=== PATIENT | female | born 2000 | race Caucasian/White ===

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

== ENCOUNTER 2021-04-01 11:29 | Outpatient (CLI) | payer MEDICAID ==
[2021-04-01 18:38] LABS: HCT - HEMATOCRIT 45.2 % (37.0-47.0); HGB - HEMOGLOBIN 15.2 g/dL (12.0-16.0); MEAN CORPUSCULAR HEMOGLOBIN 31.7 pg (27.0-31.0); MEAN CORPUSCULAR HGB CONC 33.6 g/dL (32.0-36.0); MEAN CORPUSCULAR VOLUME 94.2 fL (81.0-99.0); MEAN PLATELET VOLUME 9.9 fL (7.9-10.8); RED BLOOD COUNT 4.8 10^6/uL (4.20-5.40); RED CELL DISTRIBUTION WIDTH 12.2 % (12.0-15.0)
[2021-04-01 19:20] LABS: ALBUMIN 4.5 g/dL (3.2-5.5); ALBUMIN/GLOBULIN RATIO 1.6 (1.0-2.2); BILIRUBIN,TOTAL 0.6 mg/dL (0.2-1.0); CALCIUM 9.7 mg/dL (8.5-10.3); POTASSIUM 4.1 mmol/L (3.5-5.0); TOTAL PROTEIN 7.4 g/dL (6.7-8.2)
== END 2021-04-01 11:30 | disposition home or self-care (01) ==
LOC: LAB.N 11:29
PROVIDERS: ATTEND Obstetrics & Gynecology
DX: R53.83 Other fatigue (principal); N92.0 Excessive and frequent menstruation with regular cycle
CPT/HCPCS: 36415; 80053; 84443; 85025; 85027

== ENCOUNTER 2021-04-11 08:00 | Outpatient (CLI) | payer MEDICAID ==
[2021-04-11 20:23] LABS: CHLAMYDIA TRACHOMATIS DNA NEGATIVE (NEGATIVE); NEISSERIA GONORRHOEAE DNA NEGATIVE (NEGATIVE); TRICHOMONAS VAGINALIS DNA NEGATIVE (NEGATIVE)
[2021-04-11 21:36] LABS: BACTERIAL VAGINOSIS DNA NEGATIVE (NEGATIVE); CANDIDA GLABRATA DNA NEGATIVE (NEGATIVE); CANDIDA GROUP DNA POSITIVE (NEGATIVE); CANDIDA KRUSEI DNA NEGATIVE (NEGATIVE); TRICHOMONAS VAGINALIS DNA NEGATIVE (NEGATIVE)
== END 2021-04-11 23:59 ==
LOC: LAB 08:00
PROVIDERS: ATTEND Obstetrics & Gynecology
DX: N76.0 Acute vaginitis (principal)
CPT/HCPCS: 87491; 87591; 87661; 87801

== ENCOUNTER 2021-06-28 08:00 | Outpatient (CLI) | payer MEDICAID ==
[2021-06-28 21:19] LABS: CHLAMYDIA TRACHOMATIS DNA NEGATIVE (NEGATIVE); NEISSERIA GONORRHOEAE DNA NEGATIVE (NEGATIVE); TRICHOMONAS VAGINALIS DNA NEGATIVE (NEGATIVE)
== END 2021-06-28 23:59 | disposition home or self-care (01) ==
LOC: LAB 08:00
PROVIDERS: ATTEND Obstetrics & Gynecology
DX: Z11.3 Encounter for screening for infections with a predominantly sexual mode of transmission (principal)
CPT/HCPCS: 87491; 87591; 87661

== ENCOUNTER 2023-05-04 08:00 | Outpatient (CLI) | payer BC, MEDICAID ==
[2023-05-04 23:01] LABS: NEISSERIA GONORRHOEAE DNA NEGATIVE (NEGATIVE); TRICHOMONAS VAGINALIS DNA NEGATIVE (NEGATIVE)
[2023-05-04 23:06] LABS: CHLAMYDIA TRACHOMATIS DNA POSITIVE (NEGATIVE)
== END 2023-05-04 23:59 | disposition home or self-care (01) ==
LOC: LAB.WC 08:00
PROVIDERS: ATTEND Nurse Practitioner
DX: Z11.3 Encounter for screening for infections with a predominantly sexual mode of transmission (principal)
CPT/HCPCS: 87491; 87591; 87661

== ENCOUNTER 2023-06-03 17:01 | Outpatient (CLI) | payer BC ==
--- NOTE | 2023-06-03 21:35 | Ultrasound Report ---
PROCEDURE: Pelvic w/Transvaginal INDICATIONS: PELVIC PAIN TECHNIQUE: Real-time scanning was performed of the pelvic organs, with image documentation. Additional endovagi nal scanning was necessary due to incomplete visualization of the adnexal and endometrial structures by transabdominal scanning. COMPARISON: None. FINDINGS: Uterus: Uterus is anteverted and normal in size at 10.3 x 2.6 x 5.4 cm. The myometrium is homogeneo us. The endometrium measures 3.1 mm in combined thickness. IUD is in appropriate position. Cervix a nd vagina are within normal limits. Ovaries: The right ovary measures 3.8 x 2.4 x 3.7 cm, with a calculated ovarian volume of 17.3 cc. The left ovary measures 4] 2.1 x 3.6 cm, with a calculated ovarian volume of 15.4 cc. The ovaries bolden ve a normal sonographic appearance. Greater than 12 follicles can be seen in each ovary. No adnexal masses are seen. No cystic lesions measuring greater than 3 cm. Other: No pathologic free abdominal or pelvic fluid. IMPRESSION: 1.Greater than 12 follicles can be seen in each ovary, which can be seen in the clinical setting of P COS. 2.IUD is in appropriate position. Reviewed by: Benji Guidry MD on 06/03/2023 9:34 PM PDT Approved by: Benji Guidry MD on 06/03/2023 9:34 PM PDT Station ID: [id number]
== END 2023-06-03 17:02 | disposition home or self-care (01) ==
LOC: DI 17:01
PROVIDERS: ATTEND Nurse Practitioner
DX: E28.2 Polycystic ovarian syndrome (principal); R10.2 Pelvic and perineal pain; Z97.5 Presence of (intrauterine) contraceptive device
CPT/HCPCS: 36415; 82166; 82627; 82670; 83001; 83002; 83036; 83498; 84144; 84146; 84270; 84402; 84403; 84443

== ENCOUNTER 2023-06-26 22:28 | Emergency (ER) | payer BC ==
[2023-06-26 23:01] LABS: BASOPHILS % (AUTO) 0.4 %; EOSINOPHILS # (AUTO) 0.1 10^3/uL (0.0-0.7); EOSINOPHILS % (AUTO) 1.4 %; HCT - HEMATOCRIT 42.9 % (37.0-47.0); HGB - HEMOGLOBIN 14.3 g/dL (12.0-16.0); LYMPHOCYTES # (AUTO) 2.4 10^3/uL (1.5-3.5); LYMPHOCYTES % (AUTO) 23.5 %; MEAN CORPUSCULAR HEMOGLOBIN 31.2 pg (27.0-31.0); MEAN CORPUSCULAR HGB CONC 33.3 g/dL (32.0-36.0); MEAN CORPUSCULAR VOLUME 93.7 fL (81.0-99.0); MONOCYTES # (AUTO) 0.7 10^3/uL (0.0-1.0); MONOCYTES % (AUTO) 7.1 %; NEUTROPHILS # (AUTO) 6.9 10^3/uL (1.5-6.6); NEUTROPHILS % (AUTO) 67.3 %; PLT - PLATELET COUNT 235 10^3/uL (130-450); RED BLOOD COUNT 4.58 10^6/uL (4.20-5.40); RED CELL DISTRIBUTION WIDTH 11.9 % (12.0-15.0); WHITE BLOOD COUNT 10.3 x10^3/uL (4.8-10.8)
[2023-06-26 23:19] LABS: ALBUMIN 4.7 g/dL (3.2-5.5); ALBUMIN/GLOBULIN RATIO 1.7 (1.0-2.2); BILIRUBIN,TOTAL 0.7 mg/dL (0.2-1.0); CALCIUM 10.3 mg/dL (8.5-10.3); POTASSIUM 3.6 mmol/L (3.5-4.5); TOTAL PROTEIN 7.4 g/dL (6.4-8.9)
[2023-06-26 23:47] LABS: BILIRUBIN,URINE NEGATIVE (NEGATIVE); GLUCOSE, URINE (UA) NEGATIVE (NEGATIVE); KETONES,URINE (UA) NEGATIVE (NEGATIVE); LEUKOCYTE ESTERASE, URINE MODERATE (NEGATIVE); NITRITE,URINE NEGATIVE (NEGATIVE); OCCULT BLOOD,URINE MODERATE (NEGATIVE); PROTEIN,URINE TRACE mg/dL (NEGATIVE); UROBILINOGEN,URINE 0.2 (NORMAL) E.U./dL (NORMAL)
--- NOTE | 2023-06-26 23:48 | ED Physician Documentation ---
History of Present Illness - Stated complaint Stated Complaint: FLANK PAIN - Chief complaint Chief Complaint: Abd Pain - History obtained from History obtained from: Patient - Additonal information Additional information: 23yF p/w Dysuria, increased frequency and hematuria for the past 2 days with suprapubic pain radiating to the bilateral back and subjective fever. Denies vomiting, diarrhea. Pain is constant, aching PD PAST MEDICAL HISTORY - Past Medical History Past Medical History: No : Other Psych: ADD/ADHD - Past Surgical History Past Surgical History: No - Present Medications Home Medications: Ambulatory Orders Medication Instructions Recorded Confirmed Cetirizine HCl [Zyrtec] 10 mg PO DAILY PRN #15 capsule 07/05/14 Lisdexamfetamine Dimesylate 20 mg PO DAILY #10 capsule 07/05/14 [Vyvanse] Lisdexamfetamine Dimesylate 30 mg PO DAILY 07/05/14 07/05/14 [Vyvanse] Sulfamethoxazole/Trimethoprim 1 each PO BID 7 Days tablet 01/15/15 [Bactrim Ds Tablet] Cefpodoxime Proxetil [Vantin] 200 mg PO Q12H #28 tablet 06/27/23 - Allergies Allergies/Adverse Reactions: Allergies Allergy/AdvReac Type Severity Reaction Status Date / Time amoxicillin Allergy Hives Verified 06/26/23 22:36 Penicillins Allergy Hives Verified 06/26/23 22:36 - Social History Does the pt smoke?: No Smoking Status: Never smoker Does the pt drink ETOH?: No Does the pt have substance abuse?: No - Immunizations Immunizations are current?: Yes PD ED PE NORMAL - Vitals Vital signs reviewed: Yes - General General: Alert and oriented X 3, No acute distress, Well developed/nourished - HEENT HEENT: Atraumatic, PERRL, EOMI, Moist mucous membranes, Pharynx benign - Neck Neck: Supple, no meningeal sign - Cardiac Cardiac: RRR - Respiratory Respiratory: No respiratory distress, Clear bilaterally - Abdomen Abdomen: Non tender, Non distended, No organomegaly - Back Back: Other (BL CVA ttp) Results - Vitals Vitals: Vital Signs - 24 hr 06/26/23 22:33 Temperature 36.7 C Heart Rate 90 Respiratory 18 Rate Blood Pressure 117/79 O2 Saturation 100 Oxygen O2 Source Room air - Labs Labs: Laboratory Tests 06/26/23 06/26/23 06/26/23 22:56 22:56 23:00 WBC 10.3 RBC 4.58 Hgb 14.3 Hct 42.9 MCV 93.7 MCH 31.2 H MCHC 33.3 RDW 11.9 L Plt Count 235 MPV 9.0 Neut # (Auto) 6.9 H Lymph # (Auto) 2.4 Summers # (Auto) 0.7 Eos # (Auto) 0.1 Baso # (Auto) 0.0 Absolute Nucleated RBC 0.00 Nucleated RBC % 0.0 Sodium 137 Potassium 3.6 Chloride 102 Carbon Dioxide 27 Anion Gap 8.0 BUN 18 Creatinine 1.0 Estimated GFR (MDRD) 69 L Glucose 94 Calcium 10.3 Total Bilirubin 0.7 AST 16 ALT 15 Alkaline Phosphatase 43 Total Protein 7.4 Albumin 4.7 Globulin 2.7 Albumin/Globulin Ratio 1.7 Lipase 16 Urine Color YELLOW Urine Clarity HAZY Urine pH 6.0 Ur Specific [place] 1.015 Urine Protein TRACE Urine Glucose (UA) NEGATIVE Urine Ketones NEGATIVE Urine Occult Blood MODERATE H Urine Nitrite NEGATIVE Urine Bilirubin NEGATIVE Urine Urobilinogen 0.2 (NORMAL) Ur Leukocyte Esterase MODERATE H Urine RBC 11-25 H Urine WBC 6-10 H Ur Squamous Epith Cells RARE Squamous Urine Bacteria Rare Ur Microscopic Review INDICATED Urine Culture Comments INDICATED Urine HCG, Qual NEGATIVE PD Medical Decision Making - ED course ED course: . 23-year-old woman presented with pyelonephritis confirmed on urinalysis. She also requested STI testing and self swabbed for that. She will follow-up with results with her primary care provider. Return precautions given. Antibiotics sent to pharmacy. Departure - Departure Disposition: 01 Home, Self Care Clinical Impression: UTI (urinary tract infection) Condition: Stable Instructions: UTI Prescriptions: Cefpodoxime Proxetil [Vantin] 200 mg PO Q12H #28 tablet Comments: You were seen in the emergency department for UTI that has likely gone to your kidneys. Make sure you take your antibiotics as prescribed. STI testing was sent and you can view the results on your patient health portal tomorrow. Antibiotics sent to [facility]. Please follow-up with your primary care provider and return to the emergency department if you have any new or worsening symptoms or other concerns. Forms: PCP List
[2023-06-27 00:22] LABS: CLARITY,URINE HAZY (CLEAR); HCG UR QUAL NEGATIVE
[2023-06-27 00:23] LABS: BACTERIA,URINE Rare /HPF (None Seen); SQUAMOUS EPITHELIAL CELL,UR RARE Squamous (<= Few)
[2023-06-27] MEDS: cefTRIAXone 1 GM VIAL IM STA (00:33)
[2023-06-27] MEDS: LIDOCAINE 1% 2 ML VIAL MC ONE (00:34)
[2023-06-27] MEDS ORDERED: KETOROLAC 15 MG/ML VIAL IVP STA (00:55)
[2023-06-27] MEDS: cefTRIAXone 1 GM VIAL IVP STA (00:55)
[2023-06-27 01:06] VITALS: BP 118/80; O2SAT 98
[2023-06-27 01:45] LABS: CHLAMYDIA TRACHOMATIS DNA NEGATIVE (NEGATIVE); NEISSERIA GONORRHOEAE DNA NEGATIVE (NEGATIVE); TRICHOMONAS VAGINALIS DNA NEGATIVE (NEGATIVE)
== END 2023-06-27 00:59 | disposition home or self-care (01) ==
LOC: ED 22:28
DX: N39.0 Urinary tract infection, site not specified (principal)
CPT/HCPCS: 36415; 80053; 81001; 81003; 81025; 83690; 85025; 87077; 87086; 87491; 87591; 87661; 96374; 99283

== ENCOUNTER 2023-11-11 12:34 | Emergency (ER) | payer BC ==
[2023-11-11 12:47] VITALS: O2SAT 100
[2023-11-11 13:09] LABS: BASOPHILS % (AUTO) 0.4 %; EOSINOPHILS # (AUTO) 0.1 10^3/uL (0.0-0.7); EOSINOPHILS % (AUTO) 0.8 %; HCT - HEMATOCRIT 45.2 % (37.0-47.0); HGB - HEMOGLOBIN 15.3 g/dL (12.0-16.0); LYMPHOCYTES # (AUTO) 2.4 10^3/uL (1.5-3.5); LYMPHOCYTES % (AUTO) 24.5 %; MEAN CORPUSCULAR HEMOGLOBIN 31.4 pg (27.0-31.0); MEAN CORPUSCULAR HGB CONC 33.8 g/dL (32.0-36.0); MEAN CORPUSCULAR VOLUME 92.8 fL (81.0-99.0); MEAN PLATELET VOLUME 9.2 fL (7.9-10.8); MONOCYTES # (AUTO) 0.5 10^3/uL (0.0-1.0); NEUTROPHILS # (AUTO) 6.7 10^3/uL (1.5-6.6); NEUTROPHILS % (AUTO) 69.1 %; PLT - PLATELET COUNT 269 10^3/uL (130-450); RED BLOOD COUNT 4.87 10^6/uL (4.20-5.40); RED CELL DISTRIBUTION WIDTH 11.9 % (12.0-15.0); WHITE BLOOD COUNT 9.7 x10^3/uL (4.8-10.8)
[2023-11-11 13:16] LABS: BILIRUBIN,URINE NEGATIVE (NEGATIVE); GLUCOSE, URINE (UA) NEGATIVE (NEGATIVE); KETONES,URINE (UA) NEGATIVE (NEGATIVE); LEUKOCYTE ESTERASE, URINE NEGATIVE (NEGATIVE); NITRITE,URINE NEGATIVE (NEGATIVE); OCCULT BLOOD,URINE NEGATIVE (NEGATIVE); PROTEIN,URINE NEGATIVE (NEGATIVE); UROBILINOGEN,URINE 0.2 (NORMAL) E.U./dL (NORMAL)
[2023-11-11 13:18] LABS: CLARITY,URINE CLEAR (CLEAR)
[2023-11-11 13:35] LABS: ALBUMIN 4.6 g/dL (3.2-5.5); ALBUMIN/GLOBULIN RATIO 1.6 (1.0-2.2); BILIRUBIN,TOTAL 0.5 mg/dL (0.2-1.0); CALCIUM 9.6 mg/dL (8.5-10.3); POTASSIUM 3.8 mmol/L (3.5-4.5); TOTAL PROTEIN 7.4 g/dL (6.4-8.9)
--- NOTE | 2023-11-11 14:20 | ED Physician Documentation ---
PD HPI ABD PAIN - Stated complaint Stated Complaint: RT LOWER ABD PX - Chief complaint Chief Complaint: Abd Pain - Additional information Additional information: 23-year-old female with what she says is presumed PCOS has been unofficially tash gnosed presents emergency department for 4 days of right lower quadrant pain. Patient says that she called the [facility] and they sent her here to the emergency department for further evaluation. She says she has had no fevers or chills mild nausea no vomiting she says the pain can get so severe at points in time that she is hunched over writhing in pain. She has still been able to have intercourse she has no new sexual partners and was STD checked about 2 months ago and did not have anything and is not interested in having STD checked again. No dysuria urinary urgency or frequency PD PAST MEDICAL HISTORY - Past Medical History Past Medical History: Yes Cardiovascular: None Respiratory: None Neuro: None Endocrine/Autoimmune: None GI: None CYCLE ANALYST: None : Other HEENT: None Psych: ADD/ADHD Musculoskeletal: None Derm: None - Past Surgical History Past Surgical History: No - Present Medications Home Medications: Ambulatory Orders Medication Instructions Recorded Confirmed Cetirizine HCl [Zyrtec] 10 mg PO DAILY PRN #15 capsule 07/05/14 Lisdexamfetamine Dimesylate 20 mg PO DAILY #10 capsule 07/05/14 [Vyvanse] Lisdexamfetamine Dimesylate 30 mg PO DAILY 07/05/14 07/05/14 [Vyvanse] Sulfamethoxazole/Trimethoprim 1 each PO BID 7 Days tablet 01/15/15 [Bactrim Ds Tablet] Cefpodoxime Proxetil [Vantin] 200 mg PO Q12H #28 tablet 06/27/23 - Allergies Allergies/Adverse Reactions: Allergies Allergy/AdvReac Type Severity Reaction Status Date / Time amoxicillin Allergy Hives Verified 11/11/23 12:46 Penicillins Allergy Hives Verified 11/11/23 12:46 - Social History Does the pt smoke?: No Smoking Status: Never smoker Does the pt drink ETOH?: No Does the pt have substance abuse?: No - Immunizations Immunizations are current?: Yes - POLST Patient has POLST: No PD ED PE NORMAL - Vitals Vital signs reviewed: Yes - General General: Alert and oriented X 3, No acute distress, Well developed/nourished - Abdomen Abdomen: Normal bowel sounds, Soft, Non distended, No organomegaly, Other (right pelvic tenderness) - Back Back: No CVA TTP - Derm Derm: Normal color, Warm and dry, No rash Results - Vitals Vitals: Vital Signs - 24 hr 11/11/23 11/11/23 11/11/23 12:37 14:21 16:00 Temperature 36.9 C Heart Rate 80 61 Respiratory 16 Rate Blood Pressure 130/70 121/70 104/82 H O2 Saturation 100 100 11/11/23 16:16 Temperature Heart Rate 63 Respiratory 16 Rate Blood Pressure 120/76 O2 Saturation 100 Oxygen O2 Source Room air - Labs Labs: Laboratory Tests 11/11/23 11/11/23 11/11/23 12:44 13:02 13:02 WBC 9.7 RBC 4.87 Hgb 15.3 Hct 45.2 MCV 92.8 MCH 31.4 H MCHC 33.8 RDW 11.9 L Plt Count 269 MPV 9.2 Neut # (Auto) 6.7 H Lymph # (Auto) 2.4 Daniels # (Auto) 0.5 Eos # (Auto) 0.1 Baso # (Auto) 0.0 Absolute Nucleated RBC 0.00 Nucleated RBC % 0.0 Sodium 136 Potassium 3.8 Chloride 103 Carbon Dioxide 27 Anion Gap 6.0 BUN 15 Creatinine 1.0 Estimated GFR (MDRD) 69 L Glucose 97 Calcium 9.6 Total Bilirubin 0.5 AST 15 ALT 14 Alkaline Phosphatase 40 L Total Protein 7.4 Albumin 4.6 Globulin 2.8 Albumin/Globulin Ratio 1.6 Lipase 12 Urine Color YELLOW Urine Clarity CLEAR Urine pH 6.0 Ur Specific [place] 1.025 Urine Protein NEGATIVE Urine Glucose (UA) NEGATIVE Urine Ketones NEGATIVE Urine Occult Blood NEGATIVE Urine Nitrite NEGATIVE Urine Bilirubin NEGATIVE Urine Urobilinogen 0.2 (NORMAL) Ur Leukocyte Esterase NEGATIVE Ur Microscopic Review NOT INDICATED Urine Culture Comments NOT INDICATED - Rads (name of study) Pelvic ultrasound with Doppler limited Relevant Findings:: Final report received, EMP independent interpretation of test, Other (Normal Doppler flow to the ovaries, enlarged ovaries which can be indicative of PCOS.) PD Medical Decision Making - ED course ED course: 23-year-old female presents emergency department for right lower quadrant pain. Patient has no rebound tenderness no fevers or chills no nausea or vomiting white count is within normal limits and all of that her labs are also found to be fairly unremarkable. I have a very low suspicion for this being related to a acute appendicitis. Other considerations were ovarian torsion although patient appears to be quite comfortable she says at home she has been having moments of writhing in pain because of this I went ahead with a pelvic ultrasound to rule out possible partial ovarian torsion. Patient declined the transvaginal ultrasound but the pelvic ultrasound was found to have a normal Doppler without an ovarian torsion or other acute abnormal findings. She did have enlarged ovaries which is indicative of likely PCOS diagnosis which patient is already aware of. Urinalysis is also found to be unremarkable. Patient says that she has recently been STI tested with her partner and has had no new sexual partners and is not worried about that she has no vaginal bleeding or malodorous vaginal discharge. She is told to follow-up with [facility]ST outpatient for further evaluation of her PCOS symptoms and return precautions given all questions answered patient is safe for discharge at this time. Departure - Departure Disposition: 01 Home, Self Care Clinical Impression: Pelvic pain in female Instructions: ED Pelvic Pain UKO Comments: Thank you for trusting us with your care. We have completed labs as well as urinalysis we are not seeing any acute abnormalities or findings at this point in time we are also not seeing any acute abnormalities on your ultrasound. Please follow-up with your [facility] for further evaluation of your right sided pelvic pain. Please come back to the ER if you are having any worsening symptoms, fevers, chills, nausea vomiting or any other concerning symptoms. Forms: PCP List Discharge Date/Time: 11/11/23 16:16
[2023-11-11 16:17] VITALS: BP 120/76
--- NOTE | 2023-11-11 16:41 | Ultrasound Report ---
PROCEDURE: Pelvic w/Doppler Limited INDICATIONS: right pelvic pain TECHNIQUE: Real-time transabdominal scanning was performed of the pelvic organs, with image documentation. Dopp ler interrogation was performed of the ovaries bilaterally. COMPARISON: 06/03/2023 FINDINGS: Uterus: Uterus is anteverted and normal in size at 7.6 x 3.5 x 5.1 cm. The myometrium is homogeneou s. The endometrium measures 4 mm in combined thickness. IUD within the central uterus Ovaries: The right ovary measures 4.2 x 2.1 x 3.3 cm, with a calculated ovarian volume of 15 cc. Th e left ovary measures 4.2 x 2.5 x 2.4 cm, with a calculated ovarian volume of 13.2 cc. Appropriate b lood flow to the ovaries with Doppler interrogation. Less than 12 follicles can be seen in each ova ry. No adnexal masses are seen. No cystic lesions measuring greater than 3 cm. Other: No pathologic free abdominal or pelvic fluid. IMPRESSION: Normal Doppler flow to the ovaries. Enlarged ovaries, which can be seen in the clinical setting of PCOS. Reviewed by: Lamin Hameed MD on 11/11/2023 4:40 PM PDT Approved by: Lamin Hameed MD on 11/11/2023 4:40 PM PDT Station ID: [id number]
== END 2023-11-11 16:16 | disposition home or self-care (01) ==
LOC: ED 12:34
DX: R10.2 Pelvic and perineal pain (principal)
CPT/HCPCS: 36415; 80053; 81001; 81003; 83690; 85025; 87086; 93976; 99283; 99284

== ENCOUNTER 2024-12-11 11:06 | Inpatient (IN) ==
--- NOTE | 2024-12-11 11:54 | PROVIDER PROGRESS NOTE ---
HPI Chief Complaint: Labor Check Current : Vital Signs Temperature 98.1 F 12/11/24 11:20 Pulse Rate 85 12/11/24 11:20 Respiratory Rate 16 12/11/24 11:20 Blood Pressure 133/84 H 12/11/24 11:20 O2 Saturation 99 12/11/24 11:20 Plan Plan: Flor is a 24yo @ 39.0wks gestation by 6.4wk U/S who presents to [facility] for rule out rupture of membranes. She reports feeling a small amount of fluid leakage last evening at approximately 2300. She states the fluid seemed clear and there was no associated smell. She denies vaginal bleeding. Reports intermittent, mild contractions that she feels like are more uncomfortable than menstrual cramps but she is managing well. She reports +FM. NST: FHR baseline 130s, moderate variability, + accels, no decels Contractions palpate moderate every 3-5 minutes with soft resting tone. SVE: 3/80/-1, midposition, soft. Vertex ROM+: POSITIVE Assessment: 24yo @ 39.0wks gestation by 6.4wk U/S Spontaneous rupture of membranes GBS negative FHR Category I Plan: Admit to [facility] for labor management. Anticipate
[2024-12-11 12:01] LABS: RUPTURE OF MEMBRANES PLUS POSITIVE (NEGATIVE)
[2024-12-11] MEDS ORDERED: LABETALOL 20 MG/4 ML SYRINGE IVP PRN ×3 (12:20)
[2024-12-11] MEDS ORDERED: METHYLERGONOVINE 0.2 MG/ML VIAL IM PRN (12:20)
[2024-12-11] MEDS ORDERED: LACTATED RINGERS 1,000 ML IV PRN (12:20)
[2024-12-11] MEDS ORDERED: SODIUM CHLORIDE FLUSH 0.9% 10 ML SYRINGE IVP PRN (12:20)
[2024-12-11] MEDS ORDERED: OXYTOCIN/SODIUM CHLORIDE 500 ML IV PRN (12:20)
[2024-12-11] MEDS ORDERED: CARBOPROST TROMETHAMINE 250 MCG/ML VIAL IM PRN (12:20)
[2024-12-11] MEDS ORDERED: TERBUTALINE 1 MG/ML VIAL SUBQ PRN (12:20)
[2024-12-11] MEDS ORDERED: hydrALAZINE INJ 20 MG/ML VIAL IVP PRN (12:20)
[2024-12-11] MEDS ORDERED: OXYTOCIN 10 UNIT/ML VIAL IM PRN (12:20)
[2024-12-11] MEDS ORDERED: TRANEXAMIC ACID IN NACL 1,000 MG/100 ML BAG IV PRN (12:20)
[2024-12-11] MEDS ORDERED: fentaNYL 100 MCG/2 ML VIAL IVP PRN (12:20)
--- NOTE | 2024-12-11 12:20 | HISTORY & PHYSICAL EXAMINATION ---
Admit History Smoking Status: Former smoker HPI Current : Vital Signs Temperature 98.1 F 12/11/24 11:20 Pulse Rate 85 12/11/24 11:20 Respiratory Rate 16 12/11/24 11:20 Blood Pressure 133/84 H 12/11/24 11:20 O2 Saturation 99 12/11/24 11:20 Meds/Allgy Home Medications Ambulatory Orders Medication Instructions Recorded Confirmed vits no.[id number]-ferrous fum 1 tab PO 04/28/24 28 mg iron-folic acid 800 mcg tablet (Classic ) acetaminophen 500 mg tablet 500 mg PO Q6H PRN pain 11/21/24 (Tylenol Extra Strength) ondansetron 4 mg disintegrating 4 mg PO Q8H PRN nausea and 10/04/24 11/21/24 tablet vomiting #10 tabs breast pump #1 ea 11/15/24 11/21/24 metoclopramide HCl 5 mg tablet 5 mg PO Q6H PRN nausea and 11/29/24 11/29/24 (Reglan) vomiting #30 tabs Allergies Allergies Allergy/AdvReac Type Severity Reaction Status Date / Time amoxicillin Allergy Hives Verified 11/21/24 15:14 Penicillins Allergy Hives Verified 11/21/24 15:14 PFSH Active Problems All Active Problems (Updated 12/07/24 @ 11:27 by Kirsten Glass MA) Elevated blood pressure reading in office without diagnosis of hypertension (Acute) Supervision of normal (Acute) Influenza A (Acute) Myalgia (Acute) Upper respiratory infection (Acute) Encounter for fertility planning (Acute) Pain of ovary (Acute) Abnormal uterine bleeding (AUB) (Acute) Medical History Medical History Kidney infection Acute kidney failure Family History Family History Paternal grandmother Alcoholism Cervical cancer Heart attack Uterine cancer Lung cancer Mother Anxiety Depressed Father Mental disorder Seizure Social History Social History (Updated 11/04/24 @ 17:30 by Tegan Whiting CNM, GROUND SERVICES INSTRUCTOR) Smoking Status: Never smoker If you are a former smoker, when did you quit? (Date/Year): 2023 Number of Years Smoked: 10 Do you dip or chew tobacco?: No Do you vape?: No Patient requests smoking cessation consult: No Initiate information on smoking cessation: No Do you feel safe in your home environment?: Yes History of physical, verbal, emotional, or financial abuse?: No ETOH Use: None Substance Use: denies use POLST Patient has POLST: No Physical Abdominal Exam Vital Signs: Temp Pulse Resp BP Pulse Ox 98.1 F 85 16 133/84 H 99 12/11/24 11:20 12/11/24 11:20 12/11/24 11:20 12/11/24 11:20 12/11/24 11:20 Plan for Labor Plan For Labor I expect patient to be DC'd or transferred within 96 hours.: Yes Plan for Labor: Flor is a 24yo @ 39.0wks gestation by 6.4wk U/S who presents to [facility] with c/o vaginal leakage of clear fluid which occurred last night (12/10/2024) @ 2300. She reports small amount of persistent moisture but denies every feeling a large gush. Upon arrival ROM+ was performed and resulted positive. She denies vaginal bleeding. She reports the contractions she is experiencing are more uncomfortable than menstrual cramping but she is coping well with them. She reports +FM. Upon arrival cervix was 3-4/80/-1 and vertex with ruptured membranes and vertex position. FHR baseline 130s, moderate variability, + accels, no decels. Contractions palpate moderate every 3-5 minutes with soft resting tone. She has been a patient of [facility] for the duration of her which has remained uncomplicated. She will be admitted to [facility] for expectant management. She is supported by her partner Luis. In the event of an emergency, ACCEPTS the administration of blood products OB hx: G1: 2023 G2: Current Medical Hx: kidney infection with acute kidney failure Surgical Hx: none Social Hx: Monogamous with male partner Luis who is a campos. 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 Stopped drinking alcohol due to . Denies current use of tobacco, marijuana or other recreational drugs. Former smoker. Reports that she is safe in current relationship. Family Hx: Denies family history of congenital anomalies, Cystic Fibrosis or chromosomal abnormalities; Anxiety/depression - mother; mental disorder - father; seizures - father; lung cancer - MGM, NM - MGM, uterine cancer- MGM Allergies:Amoxicillin, Penicillin Medications: Reglan, PNV LMP:01/27/24 JOHN by LMP:11/02/24 U/S: @ 6.4wks dates with JOHN 12/18/2024 Final JOHN: 12/18/2024 Pre- weight:190 BMI:28.8 Blood type: A positive Antibody screen: negative CBC: PLT 275 HCT 43.1 HGB 14.8 rubella: equivocal VZV: NR HBsAg: Negative HepC: NR RPR/AB-EIA: NR HIV: NR Flu: declines COVID: declines PAP: 2023 - normal GC/CT: Negative HSV: denies in self and partner Genetic Testing: declined FAS: Ordered 08/09/2024 Placenta: Posterior Cord: 3vc CLAY: normal EFW: 459.1g 76.6 %tile 50gm GCT: 130 TDAP: declines Breast Pump: 11/15/2024 3rd trimester H/H PLT 14.8/44.5/221 3rd trimester RPR NR RSV declined GBS: 11/15/2024 @ 35.2wks Negative Repeat @ 38.3wks - negative Delivery plan: Desires unmedicated, low intervention delivery. Physical exam: Normocephalic, atraumatic Heart RRR w/o M/G/R Lungs CTAB Abdomen gravid, soft, nontender FHR baseline 130s, moderate variability, + accels, no decels Contractions palapte moderate every 3-5 minutes with soft resting tone SVE 3-4/80/-1, midposition, soft. Vertex Ruptured membranes x 13hrs Bilateral LE's trace edema Mood is good Assessment: 24yo @ 39.0wks gestation by 6.4wks U/S Early labor Ruptured membranes x 13hrs, clear fluid FHR Category I GBS negative Plan: Admit to [facility] for expectant management. Intermittent heart rate auscultation. Repeat SVE in 3 hours or sooner PRN. Encouraged ambulation and position changes. Jacuzzi PRN. Nitrous oxide PRN. Epidural per maternal request. Anticipate . Conclusion/Plan Lab Results 12/11/24 16:30 12/11/24 16:30
[2024-12-11] MEDS ORDERED: SODIUM CHLORIDE FLUSH 0.9% 10 ML SYRINGE IVP SCH (13:00)
[2024-12-11 16:46] LABS: HCT - HEMATOCRIT 43.7 % (37.0-47.0); HGB - HEMOGLOBIN 14.9 g/dL (12.0-16.0); MEAN PLATELET VOLUME 10.2 fL (7.9-10.8); NRBC ABSOLUTE COUNT (AUTO) 0.00 x10^3/uL; NUCLEATED RED BLOOD CELLS AUTO 0.0 /100WBC; PLT - PLATELET COUNT 262 10^3/uL (130-450); RED CELL DISTRIBUTION WIDTH 13.2 % (12.0-15.0)
[2024-12-11 17:16] LABS: ALT ALANINE AMINOTRANSFERASE 14.0 IU/L (10-60); AST ASPARTATE AMINOTRANSFERASE 15.0 IU/L (10-42); BUN - BLOOD UREA NITROGEN 7.0 mg/dL (6-20); CARBON DIOXIDE - CO2 21.0 mmol/L (21-32); CREATININE 0.6 mg/dL (0.6-1.3); GFR - MDRD 124.0 (>89)
--- NOTE | 2024-12-11 21:51 | PROVIDER PROGRESS NOTE ---
Labor Progress Note Labor Progress Note Labor Progress Note/Additional Text: S: Breathing through contractions. Intermittently nauseous and shaking. She feels the contractions are beginning to space out but the intensity is increasing. She has a strong desire to avoid epidural for pain management but has been ambulating, bouncing on the labor ball, and side-lying in the bed. She denies headache, visual disturbances, RUQ or epigastric pain. She is coping well and her partner Luis is supportive at the bedside. O: FHR 130, moderate variability, + accels, no decels Contractions palpate moderate every 5-6 minutes with soft resting tone BP mildly elevated x 1 -Pre-Eclampsia labs WNL SVE 4-5/90/-1 A: 24yo @ 39.0wks gestation Early labor FHR Category I GBS negative P: Discussed recommendation to initiate pitocin for augmentation of labor secondary to prolonged rupture of membranes and very little cervical change since admission. Pt agrees. Initiate pitocin via IV for augmentation of labor with titration per protocol. Continuous monitoring. Repeat SVE 4 hrs after initiation of pitocin. Encouraged ambulation and position changes. Jacuzzi PRN. Nitrous oxide PRN. Epidural per maternal request. Anticipate .
[2024-12-11 22:13] LABS: ALT ALANINE AMINOTRANSFERASE 13.0 IU/L (10-60); AST ASPARTATE AMINOTRANSFERASE 15.0 IU/L (10-42); BUN - BLOOD UREA NITROGEN 8.0 mg/dL (6-20); CARBON DIOXIDE - CO2 18.0 mmol/L (21-32); CREATININE 0.7 mg/dL (0.6-1.3); GFR - MDRD 104.0 (>89)
[2024-12-11] MEDS: OXYTOCIN/SODIUM CHLORIDE 500 ML IV SCH (23:05)
[2024-12-11] MEDS: LACTATED RINGERS 1,000 ML IV SCH (23:06)
[2024-12-12] MEDS ORDERED: ACETAMINOPHEN 500 MG TABLET PO PRN (04:49)
[2024-12-12] MEDS ORDERED: HYDROCORTISONE 1% CREAM 28 GM TUBE TOP PRN ×2 (04:49)
[2024-12-12] MEDS ORDERED: WITCH HAZEL/GLYCERIN 1 PAD TOP PRN (04:49)
[2024-12-12] MEDS ORDERED: SIMETHICONE CHEW 80 MG TABLET PO PRN ×2 (04:49)
[2024-12-12] MEDS ORDERED: OXYTOCIN/SODIUM CHLORIDE 500 ML IV PRN ×2 (04:49)
[2024-12-12] MEDS ORDERED: IBUPROFEN 800 MG TABLET PO PRN ×2 (04:49)
--- NOTE | 2024-12-12 04:57 | DELIVERY NOTE ---
Delivery Note Delivery Comments (Free Text/Narrative) Delivery Comments (Free Text/Narrative): Labor: This 24 year old @ 39.1wks gestation by 6.4wk U/S presented to [facility] on 12/11/2024 in early labor and with grossly ruptured membranes with small amount of clear fluid. Cervix was 3-4/80/-1 and vertex. FHR demonstrated Category I pattern throughout labor. Normal labor course. She was augmented with pitocin for a maximum infusion rate of 3mU/min. She progressed to c/c/+1 at 0330 with onset of spontaneous pushing at 0332. : Normal SVB of viable male on 12/12/2024 @ 0406. Total time of ruptured membranes 29hrs. Nucal cord x 1 was reduced. The was placed on maternal abdomen, stimulated, dried, and placed skin to skin. 's were 8/9 at 1 and 5 min respectively. Pitocin administered via IV for hemostasis. The umbilical cord was allowed to stop pulsating at which time it was doubly clamped by CNM and cut by FOB. Cord blood was obtained. 3VC. Fundal massage and gentle cord traction applied for active management of the third stage. Placenta delivered spontaneously and intact at 0426. QBL 425mL. Fourth stage: Uterine fundus firm and there is no excessive bleeding. The perineum, vagina, and cervix were inspected and found to have a 1st degree right perineal laceration which was hemostatic and left unrepaired. Tissues well approximated. initiated. Both mother and baby were left in stable condition.
[2024-12-12] MEDS: WITCH HAZEL/GLYCERIN 1 PAD TOP PRN (05:04)
[2024-12-12] MEDS: ACETAMINOPHEN 500 MG TABLET PO PRN (05:05)
[2024-12-12] MEDS ORDERED: DOCUSATE SODIUM 100 MG CAPSULE PO SCH (09:00)
[2024-12-12] MEDS: DOCUSATE SODIUM 100 MG CAPSULE PO SCH (11:02)
--- NOTE | 2024-12-13 10:31 | Discharge Summary ---
Discharge Summary HOSPITAL COURSE Hospital Course: Date of Admission: 12/11/2024 Date of Discharge: 12/13/2024 Diagnosis on Admission: 1. 24yo @ 39.0wks gestation by 6.4wks U/S 2. Early labor 3. Ruptured membranes x 13hrs, clear fluid 4. FHR Category I 5. GBS negative Diagnosis on Discharge: 1. 24yo PPD#1 s/p TSVD viable male infant 2. 3. Normal recovery Brief history: Brief History: She is a patient of [facility] who presented on 12/11/2024 in early labor. Cervix was 3-4/80/-1 and vertex with ruptured membranes and clear amniotic fluid. She was augmented with pitocin with a maximum infusion rate of 3mU/min. She progressed to deliver a viable male on 12/12/2024 @ 0406. Perineum was found to have a 1st degree right labial laceration which was hemostatic and left unrepaired. Apgars were 8/9 at 1 and 5 minutes respectively. QBL 425 mL. She has been doing well in her course. She is ambulating and tolerating a regular diet. She is urinating without difficulty and her lochia is normal. Her pain is well controlled with oral medications. She will be discharged home today on day #1 with instructions to continue taking her vitamin while and to continue taking Ibuprofen and Tylenol over the counter as needed for pain management. She intends to follow up with myself at [facility] in 1 week for routine visit or sooner if needed. She has been given precautions to call if she has any worsening fevers, chills, abdominal pain, increased vaginal bleeding or foul smelling vaginal lochia. Physical Exam: Normocephalic, atraumatic. Heart RRR w/o M/G/R, lungs CTAB, abdomen soft and nontender with fundus firm at U-1, perineum intact, light lochia rubra, bilateral LE's no edema. Mood is good. ALLERGIES Allergies Allergy/AdvReac Type Severity Reaction Status Date / Time amoxicillin Allergy Hives Verified 11/21/24 15:14 Penicillins Allergy Hives Verified 11/21/24 15:14 MEDICATIONS Ambulatory Orders Medication Instructions Recorded Confirmed vits [id number] fum 1 tab PO DAILY 12/12/24 28 mg iron-folic acid 800 mcg tablet (Classic ) acetaminophen 500 mg tablet 500 mg PO Q6H PRN pain 12/12/24 (Tylenol Extra Strength) breast pump #1 ea 11/15/24 11/21/24 PHYSICAL EXAM AT DISCHARGE Vital Signs: Vital Signs x48h Temp Pulse Resp BP BP Pulse Ox 12/13/24 09:15 98.2 F 89 21 120/80 99 12/13/24 04:49 98.2 F 87 16 124/73 LABS 12/11/24 16:30 12/11/24 21:52 Discharge Plan Discharge Patient Disposition: Home, Self Care Prescriptions: Continued Classic 28 mg iron- 800 mcg tablet 1 tab PO DAILY acetaminophen [Tylenol Extra Strength] 500 mg tablet 500 mg PO Q6H PRN (Reason: pain) (DME) breast pump Device See Rx Instructions .MEDSUPPLY Qty: 1 0RF Rx Instructions: As directed Print Language: Upper Sorbian Patient Instructions: After a Vaginal , : Caring for Yourself
[2024-12-13 10:44] VITALS: BP 126/80; TEMP 98.4; O2SAT 98
--- NOTE | 2024-12-13 11:11 | Labor Flowsheet ---
Labor Flowsheet Datetime Report Generated by CPN: 12/13/2024 11:10 Datetime: 12/13/2024 10:40 VITAL SIGNS NBP Sys/Mandy/Mean (mmHg): 126 : 80 : 92 Pulse: 98 SpO2 (%): 97 Datetime: 12/12/2024 04:38 Membranes Ruptured Date/Time: 12/10/2024 23:00 Amniotic Fluid Odor: None Datetime: 12/12/2024 04:30 Stage of : Recovery Datetime: 12/12/2024 04:18 Temperature (C): 37.5 LaborFlag: Labor Datetime: 12/12/2024 04:05 UTERINE ACTIVITY Monitor Mode: External Frequency (min): indertemient ASSESSMENT B Monitor Mode: Telemetry FHR Baseline Rate : 170 FHR Baseline Changes: Tachycardia Variability: Moderate 6-25 bpm Accelerations: 15X15 Decelerations: None Datetime: 12/12/2024 04:00 Quality: Strong Duration (sec): 80-110 Pattern: Normal: <= 5 Contractions in 10 Minutes Resting Tone (Palpate): Relaxed Datetime: 12/12/2024 03:50 ASSESSMENT A Monitor Mode: Telemetry FHR Baseline Rate : 145 Variability: Moderate 6-25 bpm Accelerations: 15X15 Datetime: 12/12/2024 03:45 Decelerations: Variable Datetime: 12/12/2024 03:32 STAGE 2 Pushing: Urge to Push Datetime: 12/12/2024 03:30 Exam by: A. Henok, CNM Vaginal Exam Comments: complete Datetime: 12/12/2024 03:04 COMMUNICATION Communication: Provider at Bedside Provider Notified (Name): A. Henok, CNM Datetime: 12/12/2024 03:00 Comments: inderment Datetime: 12/12/2024 02:37 Station: 0 Patient Position/Activity: Hands-Knees Datetime: 12/12/2024 02:20 MEDICATIONS Pitocin (milliunits): Discontinued Datetime: 12/12/2024 02:05 Membrane Status: Ruptured Membranes Rupture Method: Spontaneous Amniotic Fluid Color: Clear Amniotic Fluid Amount: Moderate Datetime: 12/12/2024 02:02 I/O Interventions: Up to BR Datetime: 12/12/2024 01:39 PATIENT CARE IV/Blood Work: IV Bolus Started; IV Bolus Given ml @ 250 Datetime: 12/12/2024 01:31 Pain Assessment Comments: pt reports feelng like she needs to have a bowel movement Datetime: 12/12/2024 00:30 Category: Category I Datetime: 12/12/2024 00:09 Monitor Interventions for FHR: Ultrasound Adjusted Datetime: 12/11/2024 23:45 Pitocin Checklist: At Least 1 Acceleration of 15 bpm x 15 Seconds in 30 Minutes or Adequate Variability; No More than 1 Late Deceleration Occurred in Past 30 Minutes; No More than 2 Variable Decelerations > 60 Seconds in Duration and decreasing >60 bpm in 30 minutes; No More than 5 Uterine Contractions in 10 Minutes for any 20 Minute Interval; Uterus Palpates Soft between Contractions Datetime: 12/11/2024 23:30 Monitor Interventions for UA: [place] Adjusted Contraction Comments: interrupted strip pattern, ELISEO Datetime: 12/11/2024 22:22 Pain Presence: Intermittent Pain Type: Contraction Pain Location: Back Pain Relief Measures: Comfort Measures Pain Coping: Breathing Through Contractions; Declines Medication or Epidural Comfort Measures: Breathing/Relaxation; Back Rub Given; Family Support Datetime: 12/11/2024 21:44 Communication Comments: Recommendation on starting pitocin, per provider Datetime: 12/11/2024 21:15 Temperature Route: Oral PAIN Pain Scale: 7 Datetime: 12/11/2024 18:45 VAGINAL EXAM Dilatation (cm): 4.5 Effacement (%): 80 Datetime: 12/11/2024 18:03 Vital Sign Comments: Inaccurate BP reading- during ctx and pt flexing arm Datetime: 12/11/2024 15:06 Cervix, Consistency: Moderate Cervix, Position: Anterior Datetime: 12/11/2024 14:58 Respirations: 16 Datetime: 12/11/2024 11:33 Patient Care Comments: Pt putting pants back on Datetime: 12/11/2024 11:29 Membrane Comments: ROM plus being done
--- OUTSIDE RECORDS SUMMARY | 2024-12-13 19:15 | EXTERNAL MEDICAL SUMMARY RPT | Continuity of Care Document ---
Author Organization [facility] Address [address] [place] [id number] Phone Problems date description facility 2024-09-21 00:05 Encounter for superv ision of normal , unspecified, unspecified trimester [facility] 2024-09-21 15:10 Right lower quadrant pain [facility] 2024-09-21 15:10 Dysuria [facility] 2024-09-21 15:10 Hematuria, unspecified [facility] 2024-09-21 15:10 Fever, unspecified [facility] 2024-09-21 15:10 Encounter for superv ision of normal , unspecified, unspecified trimester [facility] 2024-10-04 20:50 Noninfective gastroenteritis an d colitis, unspecified [facility] 2024-10-06 08:04 Noninfective gastroenteritis an d colitis, unspecified [facility] 2024-10-06 08:04 Late vomiting of [facility] 2024-10-06 08:04 Other specified dise ases and conditions complicating [facility] 2024-10-06 08:04 [facility], [facility] 2024-11-08 11:52 Encounter for superv ision of normal , unspecified, third trimester [facility] 2024-11-16 00:03 Encounter for screeni ng for Streptococcus B [facility] 2024-11-16 00:04 Encounter for screeni ng for Streptococcus B [facility] 2024-11-17 07:16 Encounter for screeni ng for Streptococcus B [facility] 2024-11-18 13:14 Encounter for superv ision of normal , unspecified, third trimester [facility] 2024-11-18 13:14 Encounter for screeni ng for Streptococcus B [facility] 2024-11-23 09:08 Encounter for superv ision of other normal , third trimester [facility] 2024-11-23 09:08 36 weeks gestation of [facility] 2024-12-05 09:03 Encounter for superv ision of normal , unspecified, third trimester [facility] 2024-12-07 11:29 Encounter for screeni ng for Streptococcus B [facility] 2024-12-07 11:30 Elevated blood-press ure reading, without diagnosis of hypertension [facility] 2024-12-07 11:30 Encounter for screeni ng for Streptococcus B [facility] 2024-12-07 12:06 Elevated blood-press ure reading, without diagnosis of hypertension [facility] 2024-12-07 12:06 Encounter for screeni ng for Streptococcus B [facility] 2024-12-08 00:04 Elevated blood-press ure reading, without diagnosis of hypertension [facility] 2024-12-08 00:04 Encounter for screeni ng for Streptococcus B [facility] 2024-12-09 10:14 Other specified preg abraham related conditions, third trimester [facility] 2024-12-09 10:14 Elevated blood-press ure reading, without diagnosis of hypertension [facility] 2024-12-09 10:14 Encounter for screeni ng for Streptococcus B [facility] 2024-12-11 12:25 Encounter for superv ision of normal , unspecified, unspecified trimester [facility] 2024-12-11 12:26 Encounter for superv ision of normal , unspecified, unspecified trimester [facility] 2024-12-11 12:27 Encounter for superv ision of normal , unspecified, unspecified trimester [facility] 2024-12-12 05:16 Encounter for superv ision of normal , unspecified, unspecified trimester [facility] 2024-12-12 08:50 Encounter for superv ision of normal , unspecified, unspecified trimester [facility] 2024-12-12 11:35 Encounter for superv ision of normal , unspecified, unspecified trimester [facility] 2024-12-13 10:31 Encounter for superv ision of normal , unspecified, unspecified trimester [facility] 2024-12-13 11:09 Encounter for superv ision of normal , unspecified, unspecified trimester [facility] Results/Labs test date facility value unit notes Result panel 1 UROBILINOGEN,URINE 2024-09-20 16:56 [facility] 0.2 (NORMAL) e.u./dl (missing) SPECIFIC GRAVITY,URINE 2024-09-20 16:56 [facility] 1.025 (missing) (missing) WBC,URINE 2024-09-20 16:56 [facility] 4-5 /hpf (missing) PH,URINE 2024-09-20 16:56 [facility] 6.0 ph (missing) CLARITY,URINE 2024-09-20 16:56 [facility] CLEAR (missing) (missing) URINE MICROSCOPIC INDICATED? 2024-09-20 16:56 [email or web address] INDICATED (missing) (missing) SQUAMOUS EPITHELIAL CELL,UR 2024-09-20 16:56 [facility] MANY Squamous (missing) (missing) BACTERIA,URINE 2024-09-20 16:56 [facility] Many /hpf (missing) NITRITE,URINE 2024-09-20 16:56 [facility] NEGATIVE (missing) (missing) OCCULT BLOOD,URINE 2024-09-20 16:56 [facility] NEGATIVE (missing) (missing) BILIRUBIN,URINE 2024-09-20 16:56 [facility] NEGATIVE (missing) Bilirubin can be influenced by color interference. Please correlate positive results with clinical presentation GLUCOSE, URINE (UA) 2024-09-20 16:56 [facility] NEGATIVE mg/dl (missing) KETONES,URINE (UA) 2024-09-20 16:56 [email or web address] NEGATIVE mg/dl (missing) PROTEIN,URINE 2024-09-20 16:56 [facility] NEGATIVE mg/dl (missing) RBC,URINE 2024-09-20 16:56 [facility] None Seen /hpf (missing) LEUKOCYTE ESTERASE, URINE 2024-09-20 16:56 [email or web address] TRACE (missing) (missing) COLOR,URINE 2024-09-20 16:56 [facility] YELLOW (missing) (missing) Result panel 2 WHITE BLOOD COUNT 2024-09-20 17:57 [facility] 10.7 x10 3/ul (missing) RED CELL DISTRIBUTION WIDTH 2024-09-20 17:57 [facility] 12.3 % (missing) HGB - HEMOGLOBIN 2024-09-20 17:57 [facility] 12.9 g/dl (missing) GLUCOSE,1H PP 50GM DOSE 2024-09-20 17:57 [facility] 130 mg/dl 50g Challenge 1 hr post Glucose < 140 mg/dL Reference: [employer] As of September 2022 testing method has changed, this may include reference ranges. PLT - PLATELET COUNT 2024-09-20 17:57 [facility] 217 10 3/ul (missing) RED BLOOD COUNT 2024-09-20 17:57 [facility] 3.93 10 6/ul (missing) MEAN CORPUSCULAR HEMOGLOBIN 2024-09-20 17:57 [facility] 32.8 pg (missing) MEAN CORPUSCULAR HGB CONC 2024-09-20 17:57 [facility] 34.4 g/dl (missing) HCT - HEMATOCRIT 2024-09-20 17:57 [facility] 37.5 % (missing) MEAN PLATELET VOLUME 2024-09-20 17:57 [facility] 9.7 fl (missing) MEAN CORPUSCULAR VOLUME 2024-09-20 17:57 [facility] 95.4 fl (missing) RPR INTERPRETATION 2024-09-20 17:57 [facility] Comment (missing ) Syphilis: RPR with Reflex to RPR Titer and Treponemal Antibodies, Traditional Screening and Diagnosis Algorithm ------ Treponemal RPR RPR, Qn Ab Final Interpretation -------- --------- ------ Non N/A N/A No laboratory evidence Reactive of syphilis. Retest in 2-4 weeks if recent exposure is suspected. -------- --------- ------ Reactive >/=1:1 Non Nontreponemal antibodies Reactive detected. Syphilis unlikely; biological false positive possible. Retest in 2-4 weeks if recent exposure is suspected. -------- --------- ------ Reactive >/=1:1 Reactive Treponemal and nontreponemal antibodies detected. Consistent with past or current (potential early) syphilis. Performed at: [facility] [address] [id number] Coatings Inspector: Cristhian Lujan MD, Phone: [phone] RPR 2024-09-20 17:57 [facility] Non Reactive (missing ) (missing) Result panel 3 SPECIFIC GRAVITY,URINE 2024-10-04 18:20 [facility] >=1.030 (missing) (missing) KETONES,URINE (UA) 2024-10-04 18:20 [facility] >=80 mg/dl (missing) WBC,URINE 2024-10-04 18:20 [facility] 0-3 /hpf (missing) UROBILINOGEN,URINE 2024-10-04 18:20 [facility] 0.2 (NORMAL) e.u./dl (missing) PH,URINE 2024-10-04 18:20 [facility] 6.0 ph (missing) COLOR,URINE 2024-10-04 18:20 [facility] DARK YELLOW (missing) URINE CLEAN CATCH CLARITY,URINE 2024-10-04 18:20 [facility] HAZY (missing) (missing) URINE MICROSCOPIC INDICATED? 2024-10-04 18:20 [facility] INDICATED (missing) (missing) SQUAMOUS EPITHELIAL CELL,UR 2024-10-04 18:20 [facility] MANY Squamous (missing) (missing) BACTERIA,URINE 2024-10-04 18:20 [facility] Many /hpf (missing) LEUKOCYTE ESTERASE, URINE 2024-10-04 18:20 [facility] NEGATIVE (missing) (missing) NITRITE,URINE 2024-10-04 18:20 [facility] NEGATIVE (missing) (missing) OCCULT BLOOD,URINE 2024-10-04 18:20 [facility] NEGATIVE (missing) (missing) BILIRUBIN,URINE 2024-10-04 18:20 [facility] NEGATIVE (missing) Bilirubin can be influenced by color interference. Please correlate positive results with clinical presentation GLUCOSE, URINE (UA) 2024-10-04 18:20 [facility] NEGATIVE mg/dl (missing) UR CULTURE IF IND 2024-10-04 18:20 [facility] NOT INDICATED (missing) A culture is not indicated on urine samples contaminated with greater than a few Squamous Epithelial cells/HPF. A mid-stream clean catch urine for culture is recommended. RBC,URINE 2024-10-04 18:20 [facility] None Seen /hpf (missing) AMORPHOUS SEDIMENT,UR 2024-10-04 18:20 [facility] Rare /lpf (missing) PROTEIN,URINE 2024-10-04 18:20 [facility] TRACE mg/dl (missing) Result panel 4 NUCLEATED RED BLOOD CELLS AUTO 2024-10-04 18:41 [facility] 0.0 /100wbc (missing) EOSINOPHILS # (AUTO) 2024-10-04 18:41 [facility] 0.0 10 3/ul (missing) NRBC ABSOLUTE COUNT (AUTO) 2024-10-04 18:41 [facility] 0.00 x10 3/ul (missing) BASOPHILS # (AUTO) 2024-10-04 18:41 [facility] 0.1 10 3/ul (missing) BILIRUBIN,TOTAL 2024-10-04 18:41 [facility] 0.6 mg/dl As of September 2022 testing method has changed, this may include reference ranges. CREATININE 2024-10-04 18:41 [facility] 0.7 mg/dl As of September 2022 testing method has changed, this may include reference ranges. MONOCYTES # (AUTO) 2024-10-04 18:41 [facility] 0.9 10 3/ul (missing) LYMPHOCYTES # (AUTO) 2024-10-04 18:41 [facility] 1.0 10 3/ul (missing) ALBUMIN/GLOBULIN RATIO 2024-10-04 18:41 [facility] 1.2 (missing) (missing) GFR - MDRD 2024-10-04 18:41 [facility] 104 (missing) The IDMS-traceable MDRD Study Equation has been validated extensively in and populations between the ages of 18 and 70 with impaired kidney function (eGFR < 60 mL/min/1.73m2) and has shown good performance for patients with all common causes of kidney disease. Although this equation has not been validated for patients older than 70, an MDRD-derived eGFR may still be a useful tool for providers caring for patients older than 70. References: http://www.nkdep .nih.gov/lab-melanie luation/gfr/crea tinine-stand ardization, last updated May 2011. CHLORIDE 2024-10-04 18:41 [facility] 105 mmol/l As of September 2022 testing method has changed, this may include reference ranges. ANION GAP 2024-10-04 18:41 [facility] 11.0 (missing) (missing) RED CELL DISTRIBUTION WIDTH 2024-10-04 18:41 [facility] 12.4 % (missing) SODIUM 2024-10-04 18:41 [facility] 136 mmol/l (missing) HGB - HEMOGLOBIN 2024-10-04 18:41 [facility] 14.8 g/dl (missing) AST ASPARTATE AMINOTRANSFERASE 2024-10-04 18:41 [facility] 15 iu/l As of September 2022 testing method has changed, this may include reference ranges. BUN - BLOOD UREA NITROGEN 2024-10-04 18:41 [facility] 15 mg/dl As of September 2022 testing method has changed, this may include reference ranges. ALT ALANINE AMINOTRANSFERASE 2024-10-04 18:41 [facility] 17 iu/l As of September 2022 testing method has changed, this may include reference ranges. NEUTROPHILS # (AUTO) 2024-10-04 18:41 [facility] 19.5 10 3/ul (missing) CARBON DIOXIDE - CO2 2024-10-04 18:41 [facility] 20 mmol/l As of September 2022 testing method has changed, this may include reference ranges. WHITE BLOOD COUNT 2024-10-04 18:41 [facility] 21.7 x10 3/ul (missing) PLT - PLATELET COUNT 2024-10-04 18:41 [facility] 221 10 3/ul (missing) LIPASE 2024-10-04 18:41 [facility] 29 u/l As of September 2022 testing method has changed, this may include reference ranges. GLOBULIN 2024-10-04 18:41 [facility] 3.3 g/dl (missing) POTASSIUM 2024-10-04 18:41 [facility] 3.9 mmol/l As of September 2022 testing method has changed, this may include reference ranges. MEAN CORPUSCULAR HEMOGLOBIN 2024-10-04 18:41 [facility] 31.6 pg (missing) MEAN CORPUSCULAR HGB CONC 2024-10-04 18:41 [facility] 33.3 g/dl (missing) ALBUMIN 2024-10-04 18:41 [facility] 4.1 g/dl As of September 2022 testing method has changed, this may include reference ranges. RED BLOOD COUNT 2024-10-04 18:41 [facility] 4.69 10 6/ul (missing) HCT - HEMATOCRIT 2024-10-04 18:41 [facility] 44.5 % (missing) ALKALINE PHOSPHATASE 2024-10-04 18:41 [facility] 63 iu/l As of September 2022 testing method has changed, this may include reference ranges. TOTAL PROTEIN 2024-10-04 18:41 [facility] 7.4 g/dl As of September 2022 testing method has changed, this may include reference ranges. CALCIUM 2024-10-04 18:41 [facility] 9.4 mg/dl As of September 2022 testing method has changed, this may include reference ranges. MEAN PLATELET VOLUME 2024-10-04 18:41 [facility] 9.6 fl (missing) GLUCOSE 2024-10-04 18:41 [facility] 91 mg/dl As of September 2022 testing method has changed, this may include reference ranges. MEAN CORPUSCULAR VOLUME 2024-10-04 18:41 [facility] 94.9 fl (missing) SLIDE REVIEW? 2024-10-04 18:41 [facility] Indicated (missing) (missing) DIFFERENTIAL COMMENT 2024-10-04 18:41 [facility] MANUAL=AUTO DIFF (missing) MANUAL DIFFERENTIAL AGREES WITH AUTO DIFFERENTIAL PLATELET ESTIMATE, MANUAL 2024-10-04 18:41 [facility] NORMAL (130-450,000) (missing) (missing) PLATELET MORPHOLOGY 2024-10-04 18:41 [facility] NORMAL APPEARANCE (missing) (missing) RBC MORPHOLOGY (MULTIPLE) 2024-10-04 18:41 [facility] NORMAL APPEARANCE (missing) (missing) Result panel 5 GBSPCR,REFLEX IF PEN ALLERGIC 2024-11-15 15:08 [facility] NEGATIVE (missing) VAGINAL/R ECTAL Result panel 6 GBSPCR,REFLEX IF PEN ALLERGIC 2024-12-07 11:29 [facility] NEGATIVE (missing) (missing) Result panel 7 RUPTURE OF MEMBRANES PLUS 2024-12-11 11:30 [facility] POSITIVE (missing) (missing) Result panel 8 NUCLEATED RED BLOOD CELLS AUTO 2024-12-11 16:30 [facility] 0.0 /100wbc (missing) EOSINOPHILS # (AUTO) 2024-12-11 16:30 [facility] 0.0 10 3/ul (missing) NRBC ABSOLUTE COUNT (AUTO) 2024-12-11 16:30 [facility] 0.00 x10 3/ul (missing) BASOPHILS # (AUTO) 2024-12-11 16:30 [facility] 0.1 10 3/ul (missing) BILIRUBIN,TOTAL 2024-12-11 16:30 [facility] 0.5 mg/dl As of September 2022 testing method has changed, this may include reference ranges. CREATININE 2024-12-11 16:30 [facility] 0.6 mg/dl As of September 2022 testing method has changed, this may include reference ranges. MONOCYTES # (AUTO) 2024-12-11 16:30 [facility] 0.7 10 3/ul (missing) ALBUMIN/GLOBULIN RATIO 2024-12-11 16:30 [facility] 1.1 (missing) (missing) LYMPHOCYTES # (AUTO) 2024-12-11 16:30 [facility] 1.2 10 3/ul (missing) ANION GAP 2024-12-11 16:30 [facility] 10.0 (missing) (missing) MEAN PLATELET VOLUME 2024-12-11 16:30 [facility] 10.2 fl (missing) CHLORIDE 2024-12-11 16:30 [facility] 102 mmol/l As of September 2022 testing method has changed, this may include reference ranges. NEUTROPHILS # (AUTO) 2024-12-11 16:30 [facility] 12.0 10 3/ul (missing) GFR - MDRD 2024-12-11 16:30 [facility] 124 (missing) The IDMS-traceable MDRD Study Equation has been validated extensively in and populations between the ages of 18 and 70 with impaired kidney function (eGFR < 60 mL/min/1.73m2) and has shown good performance for patients with all common causes of kidney disease. Although this equation has not been validated for patients older than 70, an MDRD-derived eGFR may still be a useful tool for providers caring for patients older than 70. References: http://www.nkdep. nih.gov/lab-evalu ation/gfr/creatin ine-stand ardization, last updated May 2011. ALKALINE PHOSPHATASE 2024-12-11 16:30 [facility] 124 iu/l As of September 2022 testing method has changed, this may include reference ranges. RED CELL DISTRIBUTION WIDTH 2024-12-11 16:30 [facility] 13.2 % (missing) SODIUM 2024-12-11 16:30 [facility] 133 mmol/l (missing) ALT ALANINE AMINOTRANSFERASE 2024-12-11 16:30 [facility] 14 iu/l As of September 2022 testing method has changed, this may include reference ranges. WHITE BLOOD COUNT 2024-12-11 16:30 [facility] 14.0 x10 3/ul (missing) HGB - HEMOGLOBIN 2024-12-11 16:30 [facility] 14.9 g/dl (missing) AST ASPARTATE AMINOTRANSFERASE 2024-12-11 16:30 [facility] 15 iu/l As of September 2022 testing method has changed, this may include reference ranges. CARBON DIOXIDE - CO2 2024-12-11 16:30 [facility] 21 mmol/l As of September 2022 testing method has changed, this may include reference ranges. PLT - PLATELET COUNT 2024-12-11 16:30 [facility] 262 10 3/ul (missing) GLOBULIN 2024-12-11 16:30 [facility] 3.4 g/dl (missing) ALBUMIN 2024-12-11 16:30 [facility] 3.7 g/dl As of September 2022 testing method has changed, this may include reference ranges. POTASSIUM 2024-12-11 16:30 [facility] 3.8 mmol/l As of September 2022 testing method has changed, this may include reference ranges. MEAN CORPUSCULAR HEMOGLOBIN 2024-12-11 16:30 [facility] 31.4 pg (missing) MEAN CORPUSCULAR HGB CONC 2024-12-11 16:30 [facility] 34.1 g/dl (missing) RED BLOOD COUNT 2024-12-11 16:30 [facility] 4.74 10 6/ul (missing) HCT - HEMATOCRIT 2024-12-11 16:30 [facility] 43.7 % (missing) BUN - BLOOD UREA NITROGEN 2024-12-11 16:30 [facility] 7 mg/dl As of September 2022 testing method has changed, this may include reference ranges. TOTAL PROTEIN 2024-12-11 16:30 [facility] 7.1 g/dl As of September 2022 testing method has changed, this may include reference ranges. CALCIUM 2024-12-11 16:30 [facility] 9.9 mg/dl As of September 2022 testing method has changed, this may include reference ranges. MEAN CORPUSCULAR VOLUME 2024-12-11 16:30 [facility] 92.2 fl (missing) GLUCOSE 2024-12-11 16:30 [facility] 99 mg/dl As of September 2022 testing method has changed, this may include reference ranges. Result panel 9 BILIRUBIN,TOTAL 2024-12-11 21:52 [facility] 0.7 mg/dl As of September 2022 testing method has changed, this may include reference ranges. CREATININE 2024-12-11 21:52 [facility] 0.7 mg/dl As of September 2022 testing method has changed, this may include reference ranges. ALBUMIN/GLOBULIN RATIO 2024-12-11 21:52 [facility] 1.2 (missing) (missing) CHLORIDE 2024-12-11 21:52 [facility] 101 mmol/l As of September 2022 testing method has changed, this may include reference ranges. GFR - MDRD 2024-12-11 21:52 [facility] 104 (missing) The IDMS-traceable MDRD Study Equation has been validated extensively in and populations between the ages of 18 and 70 with impaired kidney function (eGFR < 60 mL/min/1.73m2) and has shown good performance for patients with all common causes of kidney disease. Although this equation has not been validated for patients older than 70, an MDRD-derived eGFR may still be a useful tool for providers caring for patients older than 70. References: http://www.nkdep. nih.gov/lab-evalu ation/gfr/creatin ine-stand ardization, last updated May 2011. GLUCOSE 2024-12-11 21:52 [facility] 113 mg/dl As of September 2022 testing method has changed, this may include reference ranges. ANION GAP 2024-12-11 21:52 [facility] 12.0 (missing) (missing) ALT ALANINE AMINOTRANSFERASE 2024-12-11 21:52 [facility] 13 iu/l As of September 2022 testing method has changed, this may include reference ranges. SODIUM 2024-12-11 21:52 [facility] 131 mmol/l (missing) ALKALINE PHOSPHATASE 2024-12-11 21:52 [facility] 148 iu/l As of September 2022 testing method has changed, this may include reference ranges. AST ASPARTATE AMINOTRANSFERASE 2024-12-11 21:52 [facility] 15 iu/l As of September 2022 testing method has changed, this may include reference ranges. CARBON DIOXIDE - CO2 2024-12-11 21:52 [facility] 18 mmol/l As of September 2022 testing method has changed, this may include reference ranges. GLOBULIN 2024-12-11 21:52 [facility] 3.1 g/dl (missing) ALBUMIN 2024-12-11 21:52 [facility] 3.6 g/dl As of September 2022 testing method has changed, this may include reference ranges. POTASSIUM 2024-12-11 21:52 [facility] 3.9 mmol/l As of September 2022 testing method has changed, this may include reference ranges. TOTAL PROTEIN 2024-12-11 21:52 [facility] 6.7 g/dl As of September 2022 testing method has changed, this may include reference ranges. BUN - BLOOD UREA NITROGEN 2024-12-11 21:52 [facility] 8 mg/dl As of September 2022 testing method has changed, this may include reference ranges. CALCIUM 2024-12-11 21:52 [facility] 9.5 mg/dl As of September 2022 testing method has changed, this may include reference ranges. Social History date description facility
== END 2024-12-13 10:50 | disposition home or self-care (01) | DRG 807 ==
LOC: WFO 11:06 → FBP 11:08
PROVIDERS: ADMIT Nurse Practitioner Obstetrics & Gynecology; ATTEND Nurse Practitioner Obstetrics & Gynecology
DX: O69.81X0 Labor and delivery complicated by cord around neck, without compression, not applicable or unspecified; O70.0 First degree perineal laceration during delivery; Z3A.39 39 weeks gestation of pregnancy; Z37.0 Single live birth; Z87.891 Personal history of nicotine dependence